=== PATIENT | male | born 1970 | race Caucasian/White ===

== ENCOUNTER 2021-01-25 08:46 | Emergency (ER) | payer OTHER ==
[~2021-01-25] VITALS: Ht 182.9 cm; Wt 90.9 kg
[2021-01-25 09:45] VITALS: BP 108/75
[2021-01-25] MEDS ORDERED: PRED20TA PO (10:38)
== END 2021-01-25 11:26 | disposition home or self-care (01) ==
LOC: ER 08:47
DX: J45.901 Unspecified asthma with (acute) exacerbation (principal); Z88.0 Allergy status to penicillin; Z79.899 Other long term (current) drug therapy
CPT/HCPCS: 71045; 99283

== ENCOUNTER 2022-04-03 13:06 | Emergency (ER) | payer SELFPAY ==
[~2022-04-03] VITALS: Ht 182.9 cm; Wt 100.0 kg
[2022-04-03 13:32] VITALS: BP 108/78
== END 2022-04-03 16:50 | disposition home or self-care (01) ==
LOC: ER 13:06
DX: T18.108A Unspecified foreign body in esophagus causing other injury, initial encounter (principal); J45.909 Unspecified asthma, uncomplicated; Z88.0 Allergy status to penicillin; Z79.899 Other long term (current) drug therapy; X58.XXXA Exposure to other specified factors, initial encounter; Y93.89 Activity, other specified; Y92.89 Other specified places as the place of occurrence of the external cause; Y99.8 Other external cause status
CPT/HCPCS: 70490; 71250; 99284